=== PATIENT | male | born 1980 | race Caucasian/White ===

== ENCOUNTER 2021-01-28 08:26 | Inpatient (IN) | payer OTHER ==
[~2021-01-28] VITALS: Ht 188 cm; Wt 124.7 kg
[2021-01-28 08:35] VITALS: BP 126/82
[2021-01-28 09:23] LABS: ABSOLUTE LYMPHOCYTES 0.6 thou/uL (0.8-5.3); ABSOLUTE MONOCYTES 0.5 thou/uL (0.0-1.2); ABSOLUTE NEUTROPHILS 4.8 thou/uL (1.6-8.1); BASOPHILS 0.1 %; EOSINOPHILS 0.3 %; HEMATOCRIT 38.3 % (42.0-52.0); HEMOGLOBIN 13.3 gm/dL (14.0-18.0); LYMPHOCYTES 10.6 %; MCH 30.8 pg (26.0-34.0); MCHC 34.7 g/dL (28.0-37.0); MCV 88.8 fL (80.0-100.0); MONOCYTES 8.6 %; NUCLEATED RBCS 0 /100WBC; PLATELET COUNT* 275 thou/uL (150-400); POLYS 80.4 %; RBC 4.31 mil/uL (4.50-6.00); RDW-CV 13.1 % (10.5-14.5); WBC 5.9 thou/uL (4.0-11.0)
[2021-01-28 09:31] LABS: CALCIUM 8.8 mg/dL (8.5-10.1); CREATININE 0.9 mg/dL (0.6-1.3); POTASSIUM 3.6 mmol/L (3.5-5.1)
[2021-01-28 09:47] LABS: ALBUMIN 3.2 g/dL (3.4-5.0); TOTAL BILIRUBIN 0.8 mg/dL (<0.1-1.0); TOTAL PROTEIN 7.6 g/dL (6.4-8.2)
[2021-01-28 13:42] VITALS: BP 126/75
[2021-01-28 17:24] VITALS: BP 111/60
[2021-01-28 22:00] VITALS: BP 129/76
[2021-01-28 23:00] VITALS: BP 119/77
[2021-01-29 04:00] VITALS: BP 107/61
[2021-01-29 08:00] VITALS: BP 106/51
--- NOTE | 2021-01-29 10:00 | EKG ---
[place] [address] ELECTROCARDIOGRAM REPORT Name: LORENZOFERNANDOFRAN Room: [address] ADM IN ..#: [id number] Admission: 01/28/21 Attend Phys: Edy Georges Discharge: Date of : 80 Date of Service: 01/28/21 0850 Report #: [id number] THIS REPORT FOR: //name// [facility] ED Test Date: 2021-01-28 Test Time: 08:50:16 Pat Name: FRAN GALLEGOS Department: Room: [facility] Gender: M Rehabilitation Services Manager: HERBER : 1980 Requested By: Eder Watson Order Number: [id number] MD: Junaid Webb Measurements Intervals [place] Rate: 72 P: 49 TX: 164 QRS: 56 QRSD: 87 T: 4 QT: 377 QTc: 413 Interpretive Statements Sinus rhythm No previous ECG available for comparison Electronically Signed On 01-29-2021 10:00:42 CDT by Junaid Webb [email or web address] <ELECTRONICALLY SIGNED> By: Junaid Webb MD, [facility] 01/29/21 1000 9 9 Junaid Webb MD, [facility] /EPI
[2021-01-29 12:00] VITALS: BP 102/48
[2021-01-29 16:00] VITALS: BP 98/53
[2021-01-29 22:30] VITALS: BP 105/49
[2021-01-30 00:37] VITALS: BP 91/41
[2021-01-30 03:54] VITALS: BP 102/47
[2021-01-30 12:00] VITALS: BP 101/61
[2021-01-30] MEDS ORDERED: PROAIR HFA8.5 GM INH (14:40)
[2021-01-30] MEDS ORDERED: LEVOFLOXACIN500 MG PO (14:41)
[2021-01-30] MEDS ORDERED: TESSALON PERLE100 MG PO (14:42)
[2021-01-30] MEDS ORDERED: PREDNISONE 10 M10 MG PO (14:42)
[2021-01-30 15:05] VITALS: BP 101/61
[2021-01-30 20:15] VITALS: BP 101/61
== END 2021-01-30 16:30 | disposition home or self-care (01) | DRG 177 ==
LOC: M.ERS 08:26 → M.TBA-ER 09:30 → M.ORTHSURG 09:30
PROVIDERS: Family Medicine; ADMIT Internal Medicine; ATTEND Internal Medicine
DX: U07.1 COVID-19 (principal); J96.01 Acute respiratory failure with hypoxia; J12.82 Pneumonia due to coronavirus disease 2019; R74.01 Elevation of levels of liver transaminase levels